=== PATIENT | female | born 2000 | race American Indian/Alaskan Native ===

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

== ENCOUNTER 2018-02-02 15:04 | Emergency (ER) | payer MEDICAID ==
[2018-02-02 15:11] VITALS: BP 130/86
--- NOTE | 2018-02-02 15:58 | Emergency Department Report ---
<BOB ULLOA - Last Filed: 02/02/18 16:22> - General Chief complaint: Urogenital-Female Stated complaint: FOLLOW UP/INFECTION Time Seen by Provider: 02/02/18 15:38 Source: patient Mode of arrival: Ambulatory Limitations: No Limitations - History of Present Illness Initial comments: 17-year-old female past medical history healing wound left anterior montes presents for a wound check. Patient states that she had a spider bite which began to 3 weeks ago and was treated for cellulitis with antibiotics. Patient states that she ended up with an open ulceration which is why she initially presented to the hospital for evaluation approximately a week ago. Patient denies fevers chills or purulent drainage at site of wound. It is approximately 1 cm and it appears to be healing slowly. Patient denies any pain. States that after taking course of clindamycin and she developed slight white vaginal discharge with cottage cheese texture. Patient is concerned she may have developed a yeast infection. Patient is awake alert and oriented 3 not in acute distress. MD complaint: lesion (lesion on the left pretibial region consistent with healing ulcer approximately 1 cm in size), other Onset/Timin -: week(s) Location: LLE Context: recent antibiotic Associated symptoms: denies other symptoms Treatments Prior to Arrival: bandages, antibiotic - Related Data Previous Rx's Medication Instructions Recorded Last Taken Type Acetaminophen [Tylenol] 500 mg PO Q6HR PRN #30 tablet 05/31/17 Unknown Rx Nitrofurantoin Lynn/M-Cryst 100 mg PO Q12HR #14 capsule 05/31/17 Unknown Rx [Macrobid CAP] Clindamycin [Clindamycin CAP] 300 mg PO Q6H #28 capsule 01/20/18 Unknown Rx Ibuprofen [Motrin] 600 mg PO Q8H PRN #20 tablet 01/20/18 Unknown Rx Bacitracin Zinc Oint [Antibiotic 1 applicatio TP BID #1 tube 02/02/18 Unknown Rx Oint] metroNIDAZOLE [Metronidazole] 500 mg PO BID #14 tablet 02/02/18 Unknown Rx Allergies Allergy/AdvReac Type Severity Reaction Status Date / Time No Known Allergies Allergy Verified 02/02/18 15:11 Abscess Boil HPI - HPI Chief Complaint: Urogenital-Female Stated Complaint: FOLLOW UP/INFECTION Time Seen by Provider: 02/02/18 15:38 Home Medications: Previous Rx's Medication Instructions Recorded Last Taken Type Acetaminophen [Tylenol] 500 mg PO Q6HR PRN #30 tablet 05/31/17 Unknown Rx Nitrofurantoin Lynn/M-Cryst 100 mg PO Q12HR #14 capsule 05/31/17 Unknown Rx [Macrobid CAP] Clindamycin [Clindamycin CAP] 300 mg PO Q6H #28 capsule 01/20/18 Unknown Rx Ibuprofen [Motrin] 600 mg PO Q8H PRN #20 tablet 01/20/18 Unknown Rx Bacitracin Zinc Oint [Antibiotic 1 applicatio TP BID #1 tube 02/02/18 Unknown Rx Oint] metroNIDAZOLE [Metronidazole] 500 mg PO BID #14 tablet 02/02/18 Unknown Rx Allergies/Adverse Reactions: Allergies Allergy/AdvReac Type Severity Reaction Status Date / Time No Known Allergies Allergy Verified 02/02/18 15:11 ED Review of Systems ROS: Stated complaint: FOLLOW UP/INFECTION Other details as noted in HPI Constitutional: denies: chills, fever Eyes: denies: eye pain, eye discharge, vision change ENT: denies: ear pain, throat pain Respiratory: denies: cough, shortness of breath, wheezing Cardiovascular: denies: chest pain, palpitations Endocrine: no symptoms reported Gastrointestinal: denies: abdominal pain, nausea, diarrhea Genitourinary: denies: urgency, dysuria, discharge Musculoskeletal: denies: back pain, joint swelling, arthralgia Skin: as per HPI. denies: rash, lesions Neurological: denies: headache, weakness, paresthesias Psychiatric: denies: anxiety, depression Hematological/Lymphatic: denies: easy bleeding, easy bruising ED Past Medical Hx - Past Medical History Previous Medical History?: No - Surgical History Past Surgical History?: No - Social History Smoking Status: Never Smoker Substance Use Type: None - Medications Home Medications: Home Medications Medication Instructions Recorded Confirmed Last Taken Type Acetaminophen [Tylenol] 500 mg PO Q6HR PRN #30 tablet 05/31/17 Unknown Rx Nitrofurantoin Lynn/M-Cryst 100 mg PO Q12HR #14 capsule 05/31/17 Unknown Rx [Macrobid CAP] Clindamycin [Clindamycin CAP] 300 mg PO Q6H #28 capsule 01/20/18 Unknown Rx Ibuprofen [Motrin] 600 mg PO Q8H PRN #20 tablet 01/20/18 Unknown Rx Bacitracin Zinc Oint [Antibiotic 1 applicatio TP BID #1 tube 02/02/18 Unknown Rx Oint] metroNIDAZOLE [Metronidazole] 500 mg PO BID #14 tablet 02/02/18 Unknown Rx ED Physical Exam - General Limitations: No Limitations General appearance: alert, in no apparent distress - Head Head exam: Present: atraumatic, normocephalic - Eye Eye exam: Present: normal appearance, PERRL, EOMI - ENT ENT exam: Present: mucous membranes moist - Neck Neck exam: Present: normal inspection - Respiratory Respiratory exam: Present: normal lung sounds bilaterally. Absent: respiratory distress - Cardiovascular Cardiovascular Exam: Present: regular rate, normal rhythm. Absent: systolic murmur, diastolic murmur, rubs, gallop - GI/Abdominal GI/Abdominal exam: Present: soft, normal bowel sounds - Speculum exam: Present: vaginal discharge (whitish vaginal discharge) - Extremities Exam Extremities exam: Present: normal inspection - Expanded Lower Extremity Exam Left Upper Leg exam: Present: normal inspection, full ROM Knee exam: Present: deformity (small 1 cm superficial open healing ulcer without an erythematous base or palpable fluctuance), full knee extension Lower Leg exam: Present: full ROM Ankle exam: Present: normal inspection, full ROM Foot/Toe exam: Present: normal inspection, full ROM Neuro vascular tendon exam: Present: no vascular compromise Gait: Positive: observed and normal 1 - Small healing ulcer here - Back Exam Back exam: Present: normal inspection - Neurological Exam Neurological exam: Present: alert, oriented X3, CN II-XII intact, normal gait - Psychiatric Psychiatric exam: Present: normal affect, normal mood - Skin Skin exam: Present: warm, dry, intact, normal color. Absent: rash - Expanded Skin Exam Expanded Distribution of rash: LLE Description of rash: Present: size (1) 1 - Small healing ulceration here possibly 1 cm in diameter. No palpable fluctuance and no purulent drainage no surrounding cellulitis. ED Course Vital Signs 02/02/18 15:07 Temperature 97.4 F L Pulse Rate 93 H Respiratory 18 Rate Blood Pressure 130/86 O2 Sat by Pulse 100 Oximetry ED Medical Decision Making - Medical Decision Making A/P: Healing skin ulcer left lower extremity secondary to previously infected insect bite, vaginal yeast infection 1-metronidazole 500 twice a day for 7 days 2-I referred patient to wound care center. Wound appears to be healing no active cellulitis or purulent drainage from site 3-I instructed patient on how to apply wet to dry Xeroform dressings for small area that is still exposed on her left anterior pretibial montes region Critical care attestation.: If time is entered above; I have spent that time in minutes in the direct care of this critically ill patient, excluding procedure time. ED Disposition Disposition: DC-01 TO HOME OR SELFCARE Is pt being admited?: No Does the pt Need Aspirin: No Condition: Stable Instructions: Bacterial Vaginosis (ED), Chronic Wound Care (ED) Prescriptions: Bacitracin Zinc Oint [Antibiotic Oint] 1 applicatio TP BID #1 tube metroNIDAZOLE [Metronidazole] 500 mg PO BID #14 tablet [facility]errals[facility]Outside[facility] - 3-5 Days [facility] [Provider Group] - 3-5 Days Forms: STI Treatment and Prevention Time of Disposition: 16:10 <GIOVANI NG - Last Filed: 02/02/18 17:05> ED Medical Decision Making - Medical Decision Making I did not see this patient. I was available for consultation the entire time the patient was in the department. I have reviewed the BOOK TRIMMER/PAs note and agree with the plan.
[2018-02-02 16:08] LABS: Bacteria,Urine 2+ /HPF (Negative); Bilirubin,Urine NEG (Negative); Blood,Urine NEG (Negative); Color,Urine Yellow (Yellow); HCG Qualitative,Urine Negative (Negative); Mucus,Urine FEW /HPF; Protein,Urine <15 mg/dL mg/dL (Negative); Urobilinogen,Urine < 2.0 mg/dL (<2.0)
== END 2018-02-02 16:33 | disposition home or self-care (01) ==
LOC: ED 15:04
DX: L97.229 Non-pressure chronic ulcer of left calf with unspecified severity (principal)
CPT/HCPCS: 81001; 81025; 87210